=== PATIENT | female | born 1960 | race Caucasian/White ===

== ENCOUNTER 2021-03-17 15:32 | Emergency (ER) | payer MEDICARE ==
[~2021-03-17 15:32] MED LIST: ASPIR 8181 MG PO; MUPIROCIN22 GM TP; NITROSTAT0.4 MG SL
[2021-03-17] MEDS ORDERED: IBUPROFEN400 MG PO (18:38)
== END 2021-03-17 19:00 | disposition home or self-care (01) ==
LOC: ER1 15:32
DX: S93.401A Sprain of unspecified ligament of right ankle, initial encounter (principal); W19.XXXA Unspecified fall, initial encounter; Z90.710 Acquired absence of both cervix and uterus; Z90.49 Acquired absence of other specified parts of digestive tract; Z88.2 Allergy status to sulfonamides
CPT/HCPCS: 73590; 73610; 99283

== ENCOUNTER → 2021-07-23 | Outpatient (CLI) | payer OTHER ==
[~2021-07-23] MED LIST changes: +IBUPROFEN400 MG PO
== END ==
LOC: EXRD 12:44
DX: E04.2 Nontoxic multinodular goiter (principal)
CPT/HCPCS: 76536